=== PATIENT | female | born 1960 | race Caucasian/White ===

== ENCOUNTER 2025-04-21 06:33 | Day surgery (SDC) | payer MEDICARE, OTHER ==
[2025-04-13 08:30] VITALS: BP 138/71
[~2025-04-21] VITALS: Ht 160 cm; Wt 83.6 kg
[~2025-04-21 06:33] MED LIST: ATENOLOL50 MG PO; GABAPENTIN300 MG PO; GALZIN50 MG PO; LACTATED RINGER'S 1,000 ML IV SCH; LOVASTATIN40 MG PO; MEGARED OMEGA-1 EAC1 PO; MELOXICAM15 MG PO; MULTI VITAMIN1 EACH PO; ZESTORETIC 20-1 EAC1 PO
[2025-04-21 06:47] VITALS: BP 147/61
[2025-04-21] MEDS ORDERED: LIDOCAINE HCL 1% 5 ML SDV INJ ONE (07:00)
[2025-04-21] MEDS ORDERED: IBLOOD GLUCOSE TEST STRIP 1 EA TEST VI PRN (07:00)
--- NOTE | 2025-04-21 07:27 | NUR ---
PT NOT AVAILABLE FOR VISIT. PROVIDED PRAYER.
[2025-04-21] MEDS ORDERED: LIDOCAINE HCL 2% 5 ML SDV ONE (08:13)
[2025-04-21] MEDS ORDERED: propofoL 200 MG/20 ML VIAL ONE (08:13)
[2025-04-21 08:53] VITALS: BP 101/55
--- NOTE | 2025-04-21 09:10 | NUR ---
[facility]. ABD SOFT. 0845 PT AWAKE AND TALKING TO STAFF. SITTING UP IN BED SIPPING ON JUICE. 0855 WHILE GETTING DRESSED, C/O URGE TO USE COMMODE. 0856 SITTING ON COMMODE PASSING FLATUS. 0905 PT FINISHING GETTING DRESSED. 0910 DC INSTRUCTIONS GIVEN. LEFT VIA W/C.
[2025-04-21] MEDS ORDERED: GLYCOPYRROLATE 1 MG/5 ML MDV ONE (10:20)
--- NOTE | 2025-04-22 13:57 | OR ---
[facility] [address] [place] [address] Signed DATE OF OPERATION: 04/21/2025 SURGEON: Nicole Dale DO PREOPERATIVE DIAGNOSIS: Colon cancer screening. POSTOPERATIVE DIAGNOSES: 1. Colon cancer screening with internal hemorrhoids. 2. Nonspecific colitis. 3. Diverticulosis at 40 cm. PROCEDURE PERFORMED: Lozoya colonoscopy. ANESTHESIA: IV sedation. ESTIMATED BLOOD LOSS: None. DRAINS: None. COMPLICATION: None. DESCRIPTION OF PROCEDURE: The patient was brought to the GI lab, placed in supine position. After induction of IV sedation the patient placed in a left lateral position and digital rectal exam was performed and was unremarkable. The Olympus video colonoscope was introduced into the rectum and directed to the length of the rectosigmoid, sigmoid, descending colon, transverse colon, ascending colon into the cecum under direct visualization. The colon was then insufflated and general exploration was carried out. Cecum was unremarkable. No intrinsic or extrinsic masses were appreciated. Some nonspecific colitis was noted. Scope was brought back to the hepatic flexure, transverse colon. No intrinsic or extrinsic masses were appreciated. Scope was brought into the splenic flexure to the descending colon. No intrinsic or extrinsic masses were appreciated. She was noted up to 40 cm to have some diverticulosis, but it was not extensive and scattered. No extrinsic masses were appreciated. Scope was then brought back into the sigmoid, mild Electronically Signed By: NICOLE DALE DO 04/22/25 1357 PATIENT NAME: KHAI COLUNGA OPERATIVE REPORT DATE OF : 56 REPORT #: [id number] PHYSICIAN: NICOLE DALE DO PCP: YASMEEN PRUITT PA-C REPORT IS CONFIDENTIAL AND NOT TO BE RELEASED WITHOUT AUTHORIZATION [address] [place], [place] [address] Signed nonspecific colitis was noted. Rectosigmoid was unremarkable. No extrinsic masses were noted in the sigmoid or rectosigmoid. Upon at the rectal vault, some internal hemorrhoids were appreciated. There were nonbleeding . Colon was decompressed. The patient tolerated the procedure well and went to recovery room in satisfactory condition. DO YOAN Rossi/SRUTHI /[id number] Copies: ~ Electronically Signed By: NICOLE DALE DO 04/22/25 1357 PATIENT NAME: KHAI COLUNGA OPERATIVE REPORT DATE OF : 56 REPORT #: [id number] PHYSICIAN: NICOLE DALE DO PCP: YASMEEN PRUITT PA-C REPORT IS CONFIDENTIAL AND NOT TO BE RELEASED WITHOUT AUTHORIZATION
--- NOTE | 2025-04-22 20:20 | EKG ---
[facility] [address] [facility] [place], [place] [address] Signed Normal sinus rhythm Normal ECG No previous ECGs available Confirmed by Maryann Ji DO ([id number]) on 04/22/2025 8:20:17 PM Electronically Signed By: MARYANN JI DO 04/22/25 2020 PATIENT NAME: KHAI COLUNGA Electrocardiogram DATE OF : 56 PHYSICIAN: MARYANN JI DO REPORT #: [id number] REPORT IS CONFIDENTIAL AND NOT TO BE RELEASED WITHOUT AUTHORIZATION
== END 2025-04-21 09:10 | disposition home or self-care (01) ==
LOC: DS 06:33
PROVIDERS: ATTEND Surgery
PROC: 0DJD8ZZ Inspection of Lower Intestinal Tract, Via Natural or Artificial Opening Endoscopic (ICD-10-PCS; principal; 2025-04-21 08:10)
DX: Z12.11 Encounter for screening for malignant neoplasm of colon (principal); K64.8 Other hemorrhoids; K52.9 Noninfective gastroenteritis and colitis, unspecified; K57.30 Diverticulosis of large intestine without perforation or abscess without bleeding; I10 Essential (primary) hypertension; E78.5 Hyperlipidemia, unspecified; Z79.899 Other long term (current) drug therapy; Z80.0 Family history of malignant neoplasm of digestive organs
CPT/HCPCS: 93005; 93010; J2003; J2704; J7121